=== PATIENT | male | born 1945 | race Caucasian/White ===

== ENCOUNTER 2022-12-03 08:47 | Emergency (ER) | payer OTHER ==
[~2022-12-03] VITALS: Ht 177.8 cm; Wt 79.5 kg
[2022-12-03 08:53] VITALS: BP 139/61
[2022-12-03] MEDS ORDERED: ketorolac trometh. 30mg/ml inj. IM ONE (10:25)
[2022-12-03] MEDS ORDERED: TETanus/Pertussis (Acell)/Diphther VAC/PF (Tdap-Adult) 0.5ml syringe IMVAC ONE (10:25)
[2022-12-03] MEDS ORDERED: CEPH-585 PO (10:30)
[2022-12-03] MEDS ORDERED: IBUP-1986 PO (10:30)
[2022-12-03] MEDS ORDERED: ibuprofen tablet 400 MG TABLET PO ONE (10:40)
== END 2022-12-03 11:01 | disposition home or self-care (01) ==
LOC: ER 08:50
DX: S67.190A Crushing injury of right index finger, initial encounter (principal); I10 Essential (primary) hypertension; X58.XXXA Exposure to other specified factors, initial encounter; Y93.89 Activity, other specified; Y92.89 Other specified places as the place of occurrence of the external cause; Y99.8 Other external cause status
CPT/HCPCS: 90471; 90715; 99283; A6222